=== PATIENT | male | born 1955 | race Caucasian/White ===

== ENCOUNTER 2017-09-15 07:54 | Day surgery (SDC) | payer BC ==
[~2017-09-15 07:54] MED LIST: RINGER'S SOLUTION,LACTATED 1,000 ML IV PRN
[2017-09-15] MEDS ORDERED: RINGER'S SOLUTION,LACTATED 1,000 ML IV ONE (08:21)
[2017-09-15] MEDS ORDERED: RINGER'S SOLUTION,LACTATED 1,000 ML IV PRN (08:49)
[2017-09-15] MEDS ORDERED: PANTOPRAZOLE SODIUM 40 MG in NORMAL SALINE 100 ML IV ONE (08:49)
[2017-09-15] MEDS ORDERED: PANTOPRAZOLE SODIUM 40 MG/100 ML PIGGYBACK IV ONE (09:13)
[2017-09-15 09:52] VITALS: BP 145/77
--- NOTE | 2017-09-15 15:19 | OR ---
Operative Report - Dictated Report Narrative: Operative Report Date of operation: 09/15/2017 Preoperative diagnosis: Epigastric pain Postoperative diagnosis: Gastropathy with polyp formation. Possible Cardona's esophagus (pathology pending) Operation: EGD with biopsies Surgeon: Dr Culp Anesthesia: STACEY JEAN-BAPTISTE CRNA Indications for procedure: The patient is a 62-year-old male with epigastric pain. It is worse after eating or drinking alcohol. He has a history of significant gastropathy with large polyps on EGD in 2016. He had possible sludge on gallbladder ultrasound with ejection fraction of 23% on HIDA scan however Kinevac did not reproduce his discomfort. Findings: Irregular GE junction suggesting Cardona's esophagus. Significant gastropathy with a large amount of phlegm in the stomach. Multiple gastric polyps. Normal-appearing duodenum Narrative of procedure: The patient was identified preoperatively, and prior to the administration of anesthetic a multidisciplinary timeout was observed With the patient in the recumbent position, a bite-block was placed, intravenous sedation administered, and the patient's eyes covered with a towel. The flexible fiberoptic gastroscope was advanced into the posterior pharynx which appeared normal. The supraglottic larynx appeared normal. The cords appeared normal, moved well, and opposed in the midline. The scope was advanced under direct vision into the proximal esophagus which appeared normal. The esophagus appeared freely distensible with normal mucosa. The esophageal mucosa appeared normal down to the gastroesophageal junction which was irregular with several islands of mucosa. The GE junction appeared normally distensible. The scope was advanced into the stomach which was insufflated with air. There was a large amount of secretions in the stomach which were carefully suctioned prior to continuing the exam. There was cash gastric erythema with prepyloric erythema. There were multiple gastric polyps with several large polyps however no justino ulcerations were identified including a retroflexed view of the gastric fundus. The scope was redirected toward the pylorus. The pylorus appeared patent. The scope was advanced into the duodenal bulb which appeared normal. The scope was advanced further to the horizontal portion of the duodenum which appeared normal, specifically the villous architecture appeared well preserved and clear bile was present. The scope was slowly withdrawn through the duodenal bulb with confirmation that no active ulcer was present. The scope was withdrawn into the stomach and c s s representative biopsies of gastric mucosa obtained for CLOtest and pathology. The biopsy sites were seen to be hemostatic. The insufflated air was removed from the stomach and the scope withdrawn to just above the GE junction which was biopsied. The biopsy site was seen to be hemostatic. The stomach was again emptied of insufflated air, the scope withdrawn from the patient, and the procedure terminated. The patient tolerated the anesthetic and procedure well without complication and was transferred back to the ambulatory surgery area awake and in stable condition. The patient remained stable throughout a period of postoperative observation, was able to tolerate po intake, and was up without assistance. I shared the operative findings with him, and he was given copies of the photographs which appear in the medical record. He was discharged home with instructions not to engage in hazardous activity today, but may return to normal activity tomorrow and advance diet as tolerated. He is to continue medications as listed in the history and physical exam. I made arrangements to contact the patient with the biopsy reports and will make further recommendation based upon that result. Reviewed and electronically signed
== END 2017-09-15 07:55 | disposition home or self-care (01) ==
LOC: AMB 07:54
PROVIDERS: ATTEND Surgery
PROC: 0DB68ZX Excision of Stomach, Via Natural or Artificial Opening Endoscopic, Diagnostic (ICD-10-PCS; 2017-09-15)
PROC: 0DB48ZX Excision of Esophagogastric Junction, Via Natural or Artificial Opening Endoscopic, Diagnostic (ICD-10-PCS; principal; 2017-09-15 08:30)
DX: K31.7 Polyp of stomach and duodenum (principal); K29.70 Gastritis, unspecified, without bleeding; K22.70 Barrett's esophagus without dysplasia; K21.9 Gastro-esophageal reflux disease without esophagitis; I10 Essential (primary) hypertension; E78.5 Hyperlipidemia, unspecified; F41.9 Anxiety disorder, unspecified; Z87.891 Personal history of nicotine dependence; Z68.33 Body mass index [BMI] 33.0-33.9, adult